=== PATIENT | male | born 1960 | race Caucasian/White ===

== ENCOUNTER 2017-08-21 06:54 | Day surgery (SDC) | payer OTHER ==
[~2017-08-21] VITALS: Ht 182.9 cm; Wt 76.2 kg
[~2017-08-21 06:54] MED LIST: ANTIBIOTIC PO; CINNAMON500 MG; FISH OIL PO; FLONASE AL50 MCG/ACT; STALEVO PO; VITAMIN B12 PO
[2017-08-21] MEDS ORDERED: SMZ-TMP DS1 TAB PO (07:22)
[2017-08-21] MEDS ORDERED: ALLEGRA180 MG PO (07:22)
[2017-08-21 08:39] VITALS: BP 148/88
== END 2017-08-21 08:50 | disposition home or self-care (01) | DRG 951 ==
LOC: ENDO 06:54
PROVIDERS: ATTEND Surgery
PROC: 0DBN8ZX Excision of Sigmoid Colon, Via Natural or Artificial Opening Endoscopic, Diagnostic (ICD-10-PCS; principal; 2017-08-21)
PROC: 0DBL8ZX Excision of Transverse Colon, Via Natural or Artificial Opening Endoscopic, Diagnostic (ICD-10-PCS; 2017-08-21)
DX: Z12.11 Encounter for screening for malignant neoplasm of colon (principal); D12.3 Benign neoplasm of transverse colon; D12.5 Benign neoplasm of sigmoid colon

== ENCOUNTER 2017-10-16 06:46 | Day surgery (SDC) | payer OTHER ==
[~2017-10-16] VITALS: Ht 182.9 cm; Wt 78.9 kg
[~2017-10-16 06:46] MED LIST changes: +ALLEGRA180 MG PO; +NEXIUM40 M1 PO; +SMZ-TMP DS1 TAB PO
[2017-10-16 09:07] VITALS: BP 123/73
== END 2017-10-16 09:15 | disposition home or self-care (01) | DRG 375 ==
LOC: ENDO 06:46 → ORM 07:30 → ENDO 07:30
PROVIDERS: ATTEND Surgery
PROC: 0DB48ZX Excision of Esophagogastric Junction, Via Natural or Artificial Opening Endoscopic, Diagnostic (ICD-10-PCS; principal; 2017-10-16)
PROC: 0DB68ZX Excision of Stomach, Via Natural or Artificial Opening Endoscopic, Diagnostic (ICD-10-PCS; 2017-10-16)
DX: C16.0 Malignant neoplasm of cardia (principal); K92.0 Hematemesis

== ENCOUNTER 2017-10-21 08:17 | Emergency (ER) | payer OTHER ==
[~2017-10-21] VITALS: Ht 182.9 cm; Wt 75.0 kg
[2017-10-21 12:52] VITALS: BP 128/69
== END 2017-10-21 12:55 | disposition home or self-care (01) | DRG 301 ==
LOC: ED 08:17
DX: I73.9 Peripheral vascular disease, unspecified (principal); F17.210 Nicotine dependence, cigarettes, uncomplicated; M79.661 Pain in right lower leg; W22.8XXA Striking against or struck by other objects, initial encounter; Y93.89 Activity, other specified; Y92.89 Other specified places as the place of occurrence of the external cause

== ENCOUNTER 2017-11-06 08:44 | Day surgery (SDC) | payer OTHER ==
[~2017-11-06 08:44] MED LIST changes: +ASPIRIN 81 LOW81 MG PO; +DULCOLAX SS100 MG PO; +HYDROCO/APAP1 TA9 PO; +LIPITOR40 M1 PO; +PROTONIX40 M2 PO
[2017-11-06] MEDS ORDERED: LORTAB 5/3255 MG PO (10:46)
[2017-11-06 11:13] VITALS: BP 131/75
== END 2017-11-06 11:35 | disposition home or self-care (01) | DRG 376 ==
LOC: ORM 08:44
PROVIDERS: ATTEND Surgery
PROC: 0JH60XZ Insertion of Tunneled Vascular Access Device into Chest Subcutaneous Tissue and Fascia, Open Approach (ICD-10-PCS; principal; 2017-11-06)
PROC: 02HV33Z Insertion of Infusion Device into Superior Vena Cava, Percutaneous Approach (ICD-10-PCS; 2017-11-06)
PROC: B518ZZA Fluoroscopy of Superior Vena Cava, Guidance (ICD-10-PCS; 2017-11-06)
DX: C16.0 Malignant neoplasm of cardia (principal)

== ENCOUNTER 2018-09-02 12:38 | Emergency (ER) | payer OTHER ==
[~2018-09-02] VITALS: Ht 182.9 cm; Wt 74.5 kg
[~2018-09-02 12:38] MED LIST changes: +LORTAB 5/3255 MG PO
[2018-09-02 13:40] LABS: HEMATOCRIT 31.6 % (39.0-50.0); HEMOGLOBIN 10.2 g/dl (14.0-18.0); IMMATURE GRANULOCYTES 1.3 % (0.0-5.0); MEAN CORPUSCULAR HGB 32.3 pG CALC (26.0-32.0); MEAN CORPUSCULAR HGB CONC 32.3 g/L CALC (32.0-36.0); NEUT# 7.16 thou/uL (1.82-7.42); RED BLOOD COUNT 3.16 mill/uL (4.70-6.10); RED CELL DISTRI WIDTH 14.8 % (11.5-15.5)
[2018-09-02 13:45] LABS: ALBUMIN 3.7 g/dL (3.2-5.0); ALKALINE PHOSPHATASE 525 u/l (38-126); ANION GAP 17 (6-22 (CALC)); BILIRUBIN, TOTAL 0.9 mg/dL (0.0-1.4); BUN 11 mg/dL (9-20); BUN/CREATININE RATIO 19 (12-20 (CALC)); CARBON DIOXIDE 24 mmol/l (22-30); CHLORIDE 98 mmol/l (95-108); CREATININE 0.6 mg/dL (0.7-1.3); GFR > 60 ML/MIN (>=60 (CALC)); GFR FOR AFR.AMER. > 60 ML/MIN (>=60 (CALC)); INTERNATIONAL NORMALIZED RATIO 1.1 RATIO (0.7-1.3); POTASSIUM 4.4 mmol/l (3.5-5.1); PROTHROMBIN TIME 11.5 SECONDS (9.0-12.5); SGOT/AST 149 u/l (17-59); SODIUM 135 mmol/l (137-146); TOTAL PROTEIN 6.6 g/dL (6.3-8.2)
[2018-09-02] MEDS ORDERED: DILAUDID2 MG PO (14:26)
[2018-09-02] MEDS ORDERED: ZOFRAN8 MG PO (14:26)
[2018-09-02 14:35] VITALS: BP 124/81
== END 2018-09-02 14:40 | disposition home or self-care (01) | DRG 392 ==
LOC: ED 12:38
PROVIDERS: Emergency Medicine
DX: R10.13 Epigastric pain (principal); C16.9 Malignant neoplasm of stomach, unspecified; C78.7 Secondary malignant neoplasm of liver and intrahepatic bile duct; C79.51 Secondary malignant neoplasm of bone
CPT/HCPCS: Q9967

== ENCOUNTER 2018-10-16 02:12 | Emergency (ER) | payer OTHER ==
[~2018-10-16] VITALS: Ht 182.9 cm; Wt 54.5 kg
[~2018-10-16 02:12] MED LIST changes: +DILAUDID2 MG PO; +ZOFRAN8 MG PO
[2018-10-16 03:01] VITALS: BP 156/66
== END 2018-10-16 03:18 | disposition expired | DRG 297 ==
LOC: ED 02:12
DX: I46.9 Cardiac arrest, cause unspecified (principal); C34.90 Malignant neoplasm of unspecified part of unspecified bronchus or lung; C78.7 Secondary malignant neoplasm of liver and intrahepatic bile duct; C78.89 Secondary malignant neoplasm of other digestive organs; R06.02 Shortness of breath